=== PATIENT | female | born 1980 | race Caucasian/White ===

== ENCOUNTER 2021-03-23 11:04 | Emergency (ER) | payer BC, SELFPAY ==
[2021-03-23] VITALS (8 sets, daily range): BP systolic 97–110; BP diastolic 65–95; PULSE 74–93; RESP 16–18; TEMP 36.6–37.1; O2SAT 99–100
--- NOTE | ~2021-03-23 | CT_ITS ---
EXAMINATION: CT abdomen pelvis w con INDICATION: Mid abdominal pain, elevated liver function tests TECHNIQUE: Computed tomographic images of the abdomen and pelvis were obtained after the administrati on of 100 cc of Omnipaque 350 intravenous contrast. The dose-length product (DLP) was 187.84 mGy-cm. Automated exposure control and iterative reconstruction technique were employed. COMPARISON: None available FINDINGS: The lung bases are clear. The heart size is normal. There is mild intrahepatic biliary dila tation. There appears to be thickening and enlargement of the common bile duct. Cysts of the liver me asure up to 6 mm. The spleen, pancreas, and adrenal glands are normal. The gallbladder is decompresse d. The kidneys are unremarkable. There is no free intraperitoneal gas or evidence of bowel obstructio n. A moderate volume of colonic stool is present. IMPRESSION: 1. Possible thickening enlargement of the common bile duct with mild intrahepatic biliary dilatation. Recommend correlation for right upper quadrant tenderness and consider further evaluation by ultraso und and/or MRCP. Reviewed, dictated and finalized at location A. IMPRESSION: 1. Possible thickening enlargement of the common bile duct with mild intrahepat ic biliary dilatation. Recommend correlation for right upper quadrant tendernes s and consider further evaluation by ultrasound and/or MRCP.
--- NOTE | ~2021-03-23 | US_ITS ---
EXAMINATION: US right upper quadrant EXAM DATE: 03/23/2021 14:48 INDICATION: Nausea, elevated liver function tests. TECHNIQUE: Multiple grayscale and Doppler images of the abdomen right upper quadrant were obtained (b y a technologist who performed the scan) and subsequently reviewed. Correlation is made to CT earlier same day. FINDINGS: The pancreatic head and body are normal in appearance. The pancreatic tail is not visualized. The l iver has normal echogenicity and contour. There are no focal liver lesions identified. There is no evidence of intrahepatic biliary duct dilation. Portal venous flow was seen in the hepatopedal, nor mal direction and has normal Doppler waveform. No right-sided hydronephrosis. Common bile duct measures 3 mm, which is normal. The gallbladder wall is normal in thickness for cont racted state. No sonographic evidence of pericholecystic fluid. There is no cholelithiases. Technol ogist performing exam reports patient did not demonstrate sonographic Lawrence's sign. Please note mili t this sign is less reliable in patients who have received pain medication. IMPRESSION: Contracted, otherwise unremarkable gallbladder. Normal biliary duct size. Reviewed, dictated and finalized at location A.
[2021-03-23 12:13] LABS: Basophils Percent Auto 0.7 % (0.2-1.2); Eosinophils Absolute Auto 0.1 K/mm3 (0-0.3); Eosinophils Percent Auto 3.2 % (0-4.4); Hematocrit 39.9 % (37.0-47.0); Hemoglobin 12.8 g/dL (12.0-15.0); Immature Granulocyte Absolute 0.01 K/mm3 (0.00-0.031); Immature Granulocyte Percent A 0.2 % (0-0.5); Lymphocytes Absolute Auto 1.38 K/mm3 (0.9-3.2); Lymphocytes Percent Auto 31.3 % (18.3-44.2); Mean Corpuscular HGB Conc 32.1 g/dl (32-36); Mean Corpuscular Hemoglobin 31.1 pg (26-34); Mean Corpuscular Volume 96.8 fl (80-100); Mean Platelet Volume 9.9 fl (7.4-10.4); Monocytes Absolute Auto 0.5 K/mm3 (0.1-0.6); Monocytes Percent Auto 10.9 % (2.6-8.5); Neutrophils Absolute Auto 2.4 K/mm3 (1.3-6.7); Neutrophils Percent Auto 53.7 % (45.5-73.1); Platelet Count Result 239 k/mm3 (150-375); Red Blood Count 4.12 M/mm3 (4.2-5.4); Red Cell Distribution Width 13.6 % (11.5-14.5); White Blood Count 4.4 K/mm3 (4.5-10.0)
[2021-03-23 12:23] LABS: Alkaline Phosphatase 251 U/L (38-126); Anion Gap 6 mmol/L (8-16); Bilirubin,Total 1.3 mg/dL (0.2-1.3); Blood Urea Nitrogen 6 mg/dL (7-17); Calcium 9.2 mg/dL (8.4-10.2); Carbon Dioxide 28 mmol/L (22-30); Chloride 102 mmol/L (98-107); Estimated CRCL calculation 86 ml/min; Estimated Glomerular Filt Rate > 60; Glucose 140 mg/dL (65-105); Lipase 91 U/L (23-300); Potassium 3.9 mmol/L (3.4-5.0); Sodium 136 mmol/L (137-145)
[2021-03-23 12:33] LABS: Alanine Aminotransferase 1183 U/L (4-35); Aspartate Amino Transferase 1090 U/L (14-36)
--- NOTE | 2021-03-23 12:39 | ED.GENADULT ---
HPI - General Adult General Chief complaint: Abdominal Pain Stated complaint: Abd Pain Time Seen by Provider: 03/23/21 12:11 Source: patient Mode of arrival: ambulatory Limitations: no limitations History of Present Illness HPI narrative: Patient was seen in urgent care earlier today for abdominal pain that started midline from her umbilicus to her sternum and is now left-sided and periumbilical. The pain awakened her at 0400 She was sent in for possible appendicitis from urgent care. She tells me she does have a history of autoimmune hepatitis for which she has not received steroid treatment in many years. She has been well. She also has a history of transverse myelitis she has not seen neurology for many years as she has been well. She has had nausea for approximately 2 weeks, no vomiting. No fever, bowel or urinary symptoms. She has been able to eat her normal diet. Onset (ago): hour(s) Location: abdomen Radiation: abdomen and periumbilical Severity: moderate Quality: sharp Pain Consistency: constant Relieving factors: none Exacerbating factors: none Associated symptoms: nausea/vomiting (no vomiting) Treatments prior to arrival: none Related Data Allergies Allergy/AdvReac Type Severity Reaction Status Date / Time Sulfa (Sulfonamide Allergy Severe Anaphylactic Verified 03/23/21 14:47 Antibiotics) Shock egg Allergy Unknown Other Verified 03/23/21 12:32 acetaminophen AdvReac Mild Nausea and Verified 03/23/21 14:47 Vomiting azathioprine AdvReac Mild Nausea and Verified 03/23/21 14:47 Vomiting hydrocodone AdvReac Mild Nausea and Verified 03/23/21 14:47 Vomiting Review of Systems Review of Systems: All systems reviewed & are unremarkable except as noted in HPI and below [facility] Past Medical History Medical History Autoimmune hepatitis Social History Social History Smoking status: Never smoker Alcohol intake: never Substance use: never Gender identity (if verbalized by the patient): Female Exam Const: General: healthy appearing, no acute distress and alert Orientation/consciousness: patient oriented x3 HENMT: Head: normal to inspection Eyes: Conjunctivae: conjunctivae normal Pupils: Equal, round and reactive pupils present Resp: Effort & Inspection: normal respiratory effort Auscultation: clear to auscultation bilaterally Cardio: Rate: regular rate Rhythm: regular rhythm GI: Inspection: normal to inspection GI Palp: Yes Soft to palpation, Yes Tenderness to palpation present (GI) (periumbilical, radiating to left.) and Yes No hepatosplenomegaly present Percussion: Yes normal to percussion Auscultation: normal bowel sounds Rectal Exam: deferred : General: Yes no CVA tenderness Skin: General skin exam: normal color Neuro: General: patient oriented x3 and moves all extremities Extrem: General: normal to inspection Course Course Emergency Course: Reviewed the labs with the patient, specifically her concerning liver function test and her decreased white count. She was diagnosed with autoimmune hepatitis more than 5 years ago when L of her elevated liver enzymes were an incidental finding during evaluation for transverse myelitis. She saw a supervisor compounding and finishing was treated with steroids for 2 years. She has not seen him in approximately 5 years, nor has she need to see her neurologist for more than 5 years. She has been well. Call placed to here to determine if further work-up is needed here. Spoke with Dr. Bradley from . Reviewed all labs and imaging. He will be happy to see her next week for repeat labs and further treatment but feels this is related to her autoimmune hepatitis. Plan discussed with patient. Vital Signs Vital signs: Vital Signs Temperature 36.6 C 03/23/21 11:46 Pulse Rate 93 03/23/21 11:46 Respiratory Rate 16 03/23/21 11:46 Blood Pressu
[2021-03-23 12:41] LABS: Add Urine Microscopic? YES; Appearance Urine Cloudy (Clear); Bacteria Urine Trace /hpf; Bilirubin Urine Negative (Negative); Blood Urine Negative (Negative); Color Urine Yellow (Yellow); Glucose Urine UA Negative (Negative); Ketones Urine Negative (Negative); Leukocyte Esterase Ur Negative LEU/UL (Negative); Mucus Urine Rare /lpf; Nitrate Urine Negative (Negative); Protein Urine Negative (Negative); RBC Urine 0-2 /hpf (0-2); Specific Grav Ur 1.005 (1.001-1.035); Squamous Epithelial Cell Urine Moderate /hpf (Few); Urobilinogen Urine Negative mg/dL (<2.0); WBC Urine 0-3 /hpf
[2021-03-23] MEDS: SODIUM CHLORIDE 0.9% IV 1,000 ML 999 ML IV CONT (15:25)
== END 2021-03-23 17:15 | disposition home or self-care (01) ==
PROVIDERS: Emergency Medicine; Emergency Provider Emergency Medicine
DX: K75.4 Autoimmune hepatitis (principal); R11.0 Nausea
CPT/HCPCS: 36415; 74177; 76705; 80053; 81001; 81025; 83690; 85025; 96360; 96361; 99284; J7030; Q9967

== ENCOUNTER 2021-04-16 06:33 | Outpatient (CLI) | payer BC, SELFPAY ==
--- NOTE | ~2021-04-16 | MR_ITS ---
EXAMINATION: MR MRCP wo/w con/w 3D wo ind DATE: 04/16/2021 08:01 INDICATION: Autoimmune hepatitis TECHNIQUE: Magnetic resonance imaging (MRI) of the abdomen was performed without and with intravenous contrast. Sequences included coronal T2-weighted SS-FSE ARC, coronal T2-weighted FS SS-FSE, coronal T2-weighted 2D FS FIESTA, Water:Coronal LAVA-Flex, sagittal T2-weighted SS-FSE ARC, axial SSFSE ARC, axial 3D DualEcho, axial DWI B=600, axial T1-weighted LAVA, FAT:Coronal LAVA-Flex, and coronal in and opposed phase LAVA-Flex. Thick-slab T2-weighted FRFSE-XL images were obtained for magnetic resonance cholangiopancreatography (MRCP). Maximum intensity projection 3-D reconstructions of the volumetric data were created by the technologist. Postcontrast sequences included a time course of axial T1-weig hted LAVA, FAT:Coronal LAVA-Flex, coronal in and opposed phase LAVA-Flex, and Water:Coronal LAVA-Flex . COMPARISON: CT, 03/23/2021 CONTRAST: Multihance, 10 cc FINDINGS: ABDOMEN MRI: Cysts of the liver measure up to 7 mm. The liver is otherwise unremarkable. The spleen, pancreas, and adrenal glands are normal. The gallbladder is mildly contracted but otherwise unremarka ble. The kidneys are normal. There are no pathologically enlarged lymph nodes. No dilated loops of osbaldo wel are evident. No abnormal enhancement is present after contrast administration. ABDOMEN MRCP: There is no intrahepatic or extrahepatic biliary dilatation. The common bile duct is un remarkable. The previously described thickening and enhancement of the common bile duct are no longer evident. The pancreatic duct is normal in course and caliber. IMPRESSION: 1. Normal MRCP. Reviewed, dictated and finalized at location A. IMPRESSION: 1. Normal MRCP.
== END 2021-04-16 06:34 | disposition home or self-care (01) ==
LOC: ANHIMG 06:35
PROVIDERS: Visit Provider Nurse Practitioner Family
DX: K75.4 Autoimmune hepatitis (principal)
CPT/HCPCS: 74183; 76376; A9577

== ENCOUNTER → 2022-06-29 10:11 | Outpatient (CLI) | payer BC, SELFPAY ==
--- NOTE | ~2022-06-29 | MMUS_ITS ---
EXAMINATION: MM diagnostic kam BI w demetrice, US breast BI complete HISTORY: Palpable left breast abnormality. TECHNIQUE: Additional 3-D tomosynthesis images of the breasts were performed and synthetic 2-D images were generated. CAD analysis was submitted and interpreted. High resolution complete bilateral breas t ultrasound was performed. COMPARISON: No prior studies for comparison. BREAST PARENCHYMAL COMPOSITION: The breasts are extremely dense, which lowers the sensitivity of mamm ography FINDINGS: MAMMOGRAPHIC FINDINGS: There are no suspicious masses, calcifications or architectural distortion in either breast to sugges t malignancy. ULTRASOUND: Complete bilateral US of all 4 quadrants of the breasts and retroareolar region was reviewed. There a re multiple simple and complicated cysts bilaterally. There are no suspicious masses to suggest malig amrissa. In the area of palpable concern in the left breast there are 2 adjacent cysts corresponding to the area of palpable concern, largest measuring 6 mm. IMPRESSION: 1. No evidence for malignancy in either breast. Benign findings. 2. Routine yearly screening mammogram and regular clinical breast examination are recommended. BI-RADS Category 2: Benign finding(s). Reviewed, dictated and finalized at location A. IMPRESSION: 1. No evidence for malignancy in either breast. Benign findings. 2. Routine yearly screening mammogram and regular clinical breast examination a re recommended. BI-RADS Category 2: Benign finding(s).
== END ==
PROVIDERS: Visit Provider Nurse Practitioner
DX: R92.8 Other abnormal and inconclusive findings on diagnostic imaging of breast (principal)
CPT/HCPCS: 76641; 77062; 77066; G0279

== ENCOUNTER 2023-02-24 09:49 | Outpatient (RCR) | payer BC, SELFPAY ==
--- NOTE | ~2023-02-24 | US_ITS ---
EXAMINATION: US OB limited w BPP DATE: 02/24/2023 11:27 INDICATION: Decreased movement. Third trimester. TECHNIQUE: Real-time pelvic ultrasound was performed. COMPARISON: None. FINDINGS: There is a single living fetus in breech presentation. The placenta is posterior. heart rate i s 155 beats per minute (bpm). The amniotic fluid index is 13.7 cm, which is normal. Biophysical profile performed by the technologist: breathing (30 sec sustained breathing in 30 minutes): 2 out of 2 movement (3 gross body movements in 30 minutes): 2 out of 2 tone (one episode of qsuvldz-gjiuqpkba-gdumlse limb movement): 2 out of 2 Amniotic fluid pocket (2 cm): 2 out of 2 Total score: 8 out of 8 IMPRESSION: 1. Single living fetus in breech presentation. 2. Biophysical profile 8 out of 8. Reviewed, dictated and finalized at location A.
[2023-02-24 11:46] VITALS: BP 103/64; PULSE 81
== END 2023-05-25 23:59 | disposition home or self-care (01) ==
LOC: ANHOBOP 09:49
PROVIDERS: Visit Provider Obstetrics & Gynecology Gynecology
DX: O36.5930 Maternal care for other known or suspected poor fetal growth, third trimester, not applicable or unspecified (principal); Z3A.28 28 weeks gestation of pregnancy
CPT/HCPCS: 59025; 76815; 76819

== ENCOUNTER 2023-05-13 21:10 | Inpatient (IN) | payer BC, SELFPAY ==
[2023-05-13] VITALS (9 sets, daily range): BP systolic 114–133; BP diastolic 74–81; PULSE 61–89; BMI 22.4
--- NOTE | 2023-05-13 21:10 | LDADM ---
This patient, Merry Shore, was admitted to Labor/Delivery/Recovery 105 on 05/13/23 at 21:10. Plans for labor, pain management and were discussed with patient. Patient/family oriented to hospital policies and general routines including ID bracelet, bed and alarms, visiting hours, pain management, procedures, bathroom and other care routines, personal items, smoking policy, room service/diet and guest tray routines, security routines, and visiting hours. Patient/Family are encouraged to report perceived risks to care and to ask questions if they do not understand what they are told or what they should do. See OBIX for further documentation.
[2023-05-13 22:08] LABS: Basophils Percent Auto 0.2 % (0.2-1.2); Eosinophils Percent Auto 0.4 % (0-4.4); Hematocrit 33.7 % (37.0-47.0); Hemoglobin 11.6 g/dL (12.0-15.0); Immature Granulocyte Absolute 0.09 K/mm3 (0.00-0.031); Immature Granulocyte Percent A 0.9 % (0-0.5); Lymphocytes Absolute Auto 2.58 K/mm3 (0.9-3.2); Mean Corpuscular HGB Conc 34.4 g/dl (32-36); Mean Corpuscular Hemoglobin 33.6 pg (26-34); Mean Corpuscular Volume 97.7 fl (80-100); Mean Platelet Volume 11.5 fl (7.4-10.4); Monocytes Absolute Auto 0.7 K/mm3 (0.1-0.6); Monocytes Percent Auto 6.5 % (2.6-8.5); Neutrophils Absolute Auto 6.6 K/mm3 (1.3-6.7); Platelet Count Result 168 k/mm3 (150-375); Red Blood Count 3.45 M/mm3 (4.2-5.4); Red Cell Distribution Width 13.2 % (11.5-14.5); White Blood Count 9.9 K/mm3 (4.5-10.0)
[2023-05-13] MEDS: DINOPROSTONE 10 MG VAG INSERT VAGINAL (22:30)
[2023-05-14] VITALS (88 sets, daily range): BP systolic 103–149; BP diastolic 38–81; PULSE 51–212; TEMP 36.6–37.6; O2SAT 84–100
--- NOTE | 2023-05-14 08:36 | WPDOBADMIT ---
Obstetrics - Admit Note Admission Note: record reviewed. No pertinent additions to the history and/or any subsequent changes in the physical findings that are not consistent with the expected course of the were found. Additions to the history and/or subsequent changes in the physical findings follow. Here for MIL. Cervadil last pm. Ctx q 2-4 min. Cervix 1-2/50/-1 posterior. Cervadil removed. AROM with clear fluid. FHTs Cat I. Induction ongoing. Pitocin if needed in 1 hour.
[2023-05-14] MEDS: LACTATED RINGERS 1,000 ML 125 ML IV CONT ×2 (08:49→11:55)
[2023-05-14] MEDS: OXYTOCIN 30 UNITS/NS 500 ML 30 UNITS/500 ML BAG IV CONT (11:18)
[2023-05-14] MEDS: fentaNYL CITRATE INJ (*CRX) 100 MCG/2 ML VIAL 50 MCG IV PUSH (13:16)
[2023-05-14] MEDS: fentaNYL CITRATE INJ (*CRX) 100 MCG/2 ML VIAL IV PUSH (14:16)
[2023-05-14] MEDS: SODIUM CHLORIDE 0.9% IV 300 ML 600 ML I-UTERINE (14:36)
--- NOTE | 2023-05-14 15:33 | PM.OBPNLAB ---
Pain Control Date/time seen: 05/14/23 15:33 Pain control: narcotic analgesia Comments: Called by RN for persistent variable decelerations. Pitocin off. On my arrival, patient on right side. FHTs with good acels, good variability with variable decels. Pelvic Exam Dilation (cm): 5 (4-5 cm) Effacement (%): 90 station: 0 Amniotic membrane status: Leaking Contractions Monitor mode: Internal Contraction pattern: Regular Assessment and Plan Assessment: induction ongoing Plan: continuous present management
[2023-05-14] MEDS: PROCHLORPERAZINE EDISYLATE 10 MG/2 ML VIAL IM (15:42)
[2023-05-14] MEDS: MEPERIDINE HCL INJ (*CRX) 50 MG/ML AMPUL IM (15:43)
[2023-05-14] MEDS: MEPERIDINE HCL INJ (*CRX) 50 MG/ML AMPUL 100 MG IM (17:35)
--- NOTE | 2023-05-14 18:25 | PM.OBPNLAB ---
Pain Control Date/time seen: 05/14/23 18:25 Pain control: narcotic analgesia (demerol with compazine and second dose demerol given) Comments: Received 2nd dose demerol approx. 1 hour ago. Patient comfortably resting between contractions and appropriate breathing and groaning with contractions throughout discussion. Patient requesting to talk to me and requesting csection due to pain. Discussed with patient that pain is not an indication for csection. Patient and sig. other questions answered. Option of lidocaine patch and Nubain as next steps for pain control reviewed. Need to increase pitocin for adequate labor to progress discussed. Pelvic Exam Dilation (cm): 5 (4-5 cm) Effacement (%): 90 station: 0 Amniotic membrane status: Leaking Comments: per last exam by RN at 1715 Contractions Monitor mode: Internal Contraction pattern: Regular (q 5 min) Contraction intensity: Moderate Status Comments: variables with contractions. Good variability and accels. Slight decrease in baseline with narcotics. Assessment and Plan Assessment: induction ongoing Plan: continuous present management
[2023-05-14] MEDS: LIDOCAINE 5% PATCH 2 PATCH TRANSDERM (18:50)
[2023-05-14] MEDS: NALBUPHINE HCL INJ 10 MG/ML AMPUL IM (19:50)
[2023-05-14] MEDS: NALBUPHINE HCL INJ 10 MG/ML AMPUL IV PUSH (19:50)
[2023-05-14] MEDS: KETOROLAC 30 MG/ML VIAL (*BKC) (21:30)
[2023-05-14] MEDS: LIDOCAINE HCL 1% LOCAL INJ 20 ML VIAL (21:30)
--- NOTE | 2023-05-14 21:38 | PM.OBPRVD ---
OB - Delivery Note Procedure Delivery date: 05/14/23 Procedure: Induction method: AROM, Per Pitocin Protocol and Per Cervidil Protocol Delivery monitor: External FHT and Internal Uterine Route of delivery: Laceration Description: Perineal - 2nd Degree Delivery repair: vicryl (3-0) Specimen: No Quantitative Blood Loss (ml): 150 Anesthesia type: Local Disposition: Floor [place] Baby Date of : 05/14/23 Weeks of gestation at delivery: 39 gender: Female Weight (pounds): 6 Weight (ounces): 6 presentation: vertex position: Right Occiput Anterior Placenta delivery description: Spontaneous Cord Vessel Description: 3 Vessels score one minute: 8 score five minutes: 8
--- NOTE | 2023-05-14 21:40 | PM.OBDSVD ---
DS: Admitting Diagnosis Discharge Date 05/16/23 Admitting Diagnosis IUP 39 wks for DAVID DS: Discharge Diagnosis Discharge Diagnosis (1) (normal spontaneous vaginal delivery): Code(s): O80 - Encounter for full-term uncomplicated delivery Status: Acute OB - DS: Summary OB Procedures : Ultrasound OB Procedures Intrapartum: Spontaneous Vag Delivery OB Procedures: : None Peripartum Data Delivery Method: Natural Vaginal Laceration Description: Perineal - 2nd Degree complications: none Status at Discharge Functional status at discharge: independent ambulation Overall status at discharge: patient is progressing back to baseline Time Spent with Patient Time attestation: Total time spent providing and/or coordinating discharge services: DS: Data Data Completed and Pending Labs on day of discharge: Labs from last 24 hours 05/13/23 21:58 WBC 9.9 RBC 3.45 L Hgb 11.6 L Hct 33.7 L MCV 97.7 MCH 33.6 MCHC 34.4 RDW 13.2 Plt Count 168 MPV 11.5 H Immature Gran % (Auto) 0.9 H Neut % (Auto) 66.0 Lymph % (Auto) 26.0 [place] % (Auto) 6.5 Eos % (Auto) 0.4 Baso % (Auto) 0.2 Lymph # (Auto) 2.58 [place] # (Auto) 0.7 H Eos # (Auto) 0.0 Baso # (Auto) 0.0 Abs Immat Gran (auto) 0.09 H Absolute Neuts (auto) 6.6 Absolute Nucleated RBC 0.0 Nucleated RBC % 0.0 RPR Pending Blood Type O Positive Antibody Screen Negative Discharge Plan Discharge Attending physician on discharge: Leida Ridley Discharging Clinician: Leida Ridley Anticipated Discharge Date/Time: 05/16/23 21:41 Patient Disposition: Home, Self-Care Activity: may shower and pelvic rest Diet: regular Patient Instructions: Antibiotic Form Stand Alone Forms: General Discharge Information Follow-up/Referrals: Leida Ridley MD [Physician] - 6 Weeks Discharge Medications: Continued prenat.vits,stephane,jox-dtno-enytj Tablet 1 tablet PO DAILY Adult 50 Plus Probiotic 4 billion cell capsule 1 mmu cells PO DAILY budesonide 3 mg capsule,delayed,extend.release 9 mg PO DAILY Patient Comments: pt took own home medication. Rx Instructions: TAKE 3 CAPSULES BY MOUTH DAILY ferrous sulfate 325 mg (65 mg iron) Tablet 325 mg PO BID Discontinued aspirin [Aspirin Child] 81 mg Tablet,Chewable 81 mg PO HS Date of admission: 05/13/23 21:10 Primary Care Provider: PHYSICIAN NOT ON STAFF,NONSTAFF Admitting Provider: Leida Ridley Attending physician on admission: Leida Ridley Condition: Stable
[2023-05-14] MEDS: OXYTOCIN 30 UNITS/NS 500 ML 30 UNITS/500 ML BAG 125 UNITS IV CONT (22:30)
--- NOTE | 2023-05-14 23:55 | OBPPTRN ---
Patient transferred to post room #292 via w/c. Support person present. Oriented to unit, room, information board, rooming in, admission packet and security measures. Patient verbalizes understanding.
[2023-05-15 00:10] VITALS: BP 125/78; PULSE 66; RESP 18; TEMP 36.9; O2SAT 99
[2023-05-15 05:00] VITALS: BP 116/73; PULSE 62; RESP 16; TEMP 36.7; O2SAT 98
[2023-05-15 05:16] LABS: Hematocrit 29.7 % (37.0-47.0); Hemoglobin 10.4 g/dL (12.0-15.0)
--- NOTE | 2023-05-15 05:21 | PM.OBPNVD ---
OB - PN: Subj Subjective Date/time seen: 05/15/23 05:10 Interval history: PPD 1 from . Has ambulated to BR. Pain well controlled with PO medication. Denies passing any large clots. Patient comments: pain well controlled baby status: doing well [place] feeding status: breast and bottle feeding OB - PN: Obj Data Labs 05/13/23 21:58 OB - PN A/P Plan day: 1 Plan: routine care Time Spent With Patient Time: Total time spent is greater than 50% in coordination of care (as documented) at patient's floor/unit and/or counseling patient: Review of Systems Review of Systems: All systems reviewed & are unremarkable except as noted in HPI and below Constitutional: Constitutional: Reports no additional constitutional complaints Genitourinary: Comments: Urinating without difficulty. Exam Narrative: Alert and oriented. Mood is pleasant and cooperative. Urinating without difficulty. Denies passing any large clots. Perineum with minimal edema. Fundus firm and below umbilicus. Const: General: cooperative, healthy appearing, no acute distress and alert Orientation/consciousness: patient oriented x3 Limitations: no limitations Resp: Effort & Inspection: normal respiratory effort Auscultation: clear to auscultation bilaterally Cardio: Rate: regular rate GI: Inspection: normal to inspection Neuro: General: patient oriented x3 Extrem: General: normal to inspection Psych: Appearance: grossly normal Mental Status: mental status grossly normal Affect: normal affect Thought process: Normal thought process present
[2023-05-15] MEDS: IBUPROFEN 600 MG TABLET PO (09:34)
[2023-05-15] MEDS: MULTIVIT/MIN/PREN/FOL AC/IRON TABLET 1 TAB PO (09:34)
[2023-05-15 10:00] VITALS: BP 109/76; PULSE 96; RESP 16; TEMP 37.1; O2SAT 100
[2023-05-15 13:07] VITALS: BP 111/69; PULSE 79; RESP 16; TEMP 36.8; O2SAT 99
[2023-05-15 16:52] VITALS: BP 111/69; PULSE 68; RESP 16; TEMP 36.8; O2SAT 100
[2023-05-15 19:15] VITALS: BP 123/66; PULSE 76; RESP 16; TEMP 36.2; O2SAT 100
[2023-05-16] MEDS: IBUPROFEN 600 MG TABLET PO ×2 (00:48→07:42)
[2023-05-16 07:27] VITALS: BP 119/79; PULSE 68; RESP 16; TEMP 37.1; O2SAT 100
[2023-05-16] MEDS: WITCH HAZEL 40 PADS 1 PAD TOPICAL (07:41)
[2023-05-16] MEDS: BENZOCAINE 20% AER SPR (*SP) 56 GM CAN 1 SPRAY TOPICAL (07:41)
[2023-05-16] MEDS: LANOLIN (LANSINOH) 7.5 GM CREAM 1 APPLIC TOPICAL (07:43)
--- NOTE | 2023-05-16 09:31 | PM.OBPNVD ---
OB - PN: Subj Subjective Date/time seen: 05/16/23 09:31 Patient comments: no complaints and pain well controlled baby status: doing well OB - PN: Obj Data Labs 05/15/23 04:57 OB - PN A/P Plan day: 2 Plan: routine care, discharge home, follow up 6 weeks and other (unsure bc) Time Spent With Patient Time: Total time spent is greater than 50% in coordination of care (as documented) at patient's floor/unit and/or counseling patient: Exam : Bimanual exam- vagina & uterus: other (Uterus firm, nt @U)
[2023-05-16] MEDS: MULTIVIT/MIN/PREN/FOL AC/IRON TABLET 1 TAB PO (10:02)
[2023-05-16 10:56] LABS: Rapid Plasma Reagin Non-Reactive (NonReactive)
--- NOTE | 2023-05-16 12:03 | PC.NURSE ---
[id number] Introductions were made, then consulted with patient to assess needs related to . Mother led the conversation with her?plans to feed?her infant and the?experience so far. Mother works well with her with encouragement and education. Encouraged understanding of the benefits of skin to skin (demonstrating unwrapping and placing upright on her chest), stimulating with massage touch, changing positions to encourage wakefulness, how to watch for early feeding cues, responsive feeding, feeding on demand (aiming for 8-12 times in 24 hours, about every 2-3 hours), milk production, building/maintaining a milk supply, duration of feeding, signs of adequate intake/output and how to record on the feeding sheet. Reviewed positioning and ear, shoulder, hip alignment, supporting the breast to facilitate a deep latch, asymmetrical latch (off-center), leading with the chin with a big, open, wide gape and body close to mother. Infant latched optimally to the left breast in cross cradle position. Education given to mother of how to visualize suck/swallow ratios and listen for drinking at the breast. Infant was able to maintain latch without discomfort to mother. Nipple care reviewed with optimal latch and good positioning. Mother is a bit uncomfortable with the cross cradle positioning. Infant was detached and placed upright [id number]. Once feeding cues were visualized was brought to the right breast using the football positioning. Parents were educated with infant demonstrating a deep latch, with no pain to mother after about 1-2 minutes, with swallowing both heard and visualized. Mother was reminded of comfort measures of healing with a warm and wet washcloth to rinse breast, then leave open to air-dry as needed. Reviewed good handwashing when or touching the breast/nipples to prevent infection. Mother is feeding appropriately for growth of infant and understands stimulating infant to eat if needed. Parents have mostly bottle fed the first 24 hours with only attempts to breastfeed. Infant has had appropriate feedings in the last 24 hours meets the outcomes for weight, output and jaundice at this time. Mother states she is more confident to continue effectively her infant at home, when to call for assistance and denies any additional assistance or bottle feed if she chooses. Mother has been previously been initiated and educated with pumping per Primary RN. Instructions given on cleaning, care, usage, that there should be no pain, pumping schedule for milk production, collection, and storage of human milk. Patient was encouraged to pump for comfort and nipple stretching/stimulation for adequate milk production every 3 hours (8 times in 24 hours) 1-2 times at night if infant is not effectively . Reinforced understanding of milk production, transition of milk, signs of adequate intake, transition of stool, prevention/relief of engorgement, plugged ducts, mastitis, responsive watching for feeding cues, the different methods of stimulating to breastfeed on demand or 2-3 hours after the start of the last feeding, community resources, and when to call a provider using the resource of the mom and baby guide. Parents voiced understanding of the education shared. Reported to the primary RN.
--- NOTE | 2023-05-16 13:21 | PC.NURSE ---
1302 - Primary RN requested LC assessment of latch. RN arrived into the room and visualized mother cradle holding her sleeping infant wrapped in a soft, fuzzy blanket. RN offered assistance. Father of baby encouraged mother to receive assistance. Mother confidently states she had latched with a big, wide open mouth, observed swallowing, heard swallowing, had no pain with the latch for 10 minutes and declined further assistance. Reinforced understanding of milk production, transition of milk, signs of adequate intake, transition of stool, prevention/relief of engorgement, plugged ducts, mastitis, responsive watching for feeding cues, protecting the milk supply and nipples with good positioning with deep effective 8-12 times in a 24 hour period. Mother voiced understanding of the education shared. Reported to the primary RN.
[2023-05-17 11:43] VITALS: BP 124/65; PULSE 82; RESP 18; TEMP 37.3; O2SAT 100
== END 2023-05-16 14:40 | disposition home or self-care (01) | DRG 807 ==
LOC: ANHLDR 05-14 21:41 → ANHOB2 05-14 23:57
PROVIDERS: Admitting Provider Obstetrics & Gynecology Gynecology; Visit Provider Obstetrics & Gynecology Gynecology
DX: O70.1 Second degree perineal laceration during delivery (principal); Z37.0 Single live birth; Z3A.39 39 weeks gestation of pregnancy
CPT/HCPCS: 36415; 85014; 85018; 85025; 86592; 86850; 86900; 86901; A9270; J0780; J1885; J2175; J2300; J2590; J3010; J7030; J7120

== ENCOUNTER 2023-06-15 10:40 | Outpatient (RCR) | payer BC, SELFPAY | END 2023-09-07 23:59 | disposition home or self-care (01) | LOC: ANHOBOP 10:40 | PROVIDERS: Visit Provider Pediatrics Adolescent Medicine | DX: Z39.1 Encounter for care and examination of lactating mother (principal) | CPT/HCPCS: 99212; G0463 ==

== ENCOUNTER → 2023-10-20 09:35 | Outpatient (CLI) | payer BC, SELFPAY ==
--- NOTE | ~2023-10-20 | MMUS_ITS ---
EXAMINATION: MM diagnostic kam BI w demetrice, US breast BI complete HISTORY: Nipple discharge. Breast pain. TECHNIQUE: Additional 3-D tomosynthesis images of the breasts were performed and synthetic 2-D images were generated. CAD analysis was submitted and interpreted. High resolution complete bilateral breas t ultrasound was performed. COMPARISON: 06/29/2022 BREAST PARENCHYMAL COMPOSITION: Dense: The breasts are extremely dense, which lowers the sensitivity of mammography. FINDINGS: MAMMOGRAPHIC FINDINGS: There are no suspicious masses, calcifications or architectural distortion in either breast to sugges t malignancy. ULTRASOUND: Complete bilateral US of all 4 quadrants of the breasts and retroareolar region was reviewed. Right breast: At 1:00 near the areola there is a 4 mm simple cyst. At 8:00, 1 cm from the nipple ther e is an oval hypoechoic 5 mm mass with posterior acoustic enhancement and no internal vascularity, li braden benign. At 9:00, 3 cm from the nipple there is a 3 mm cyst. At 10:00, 4 cm from the nipple, ther e is a 1 cm cyst. At 10:00, 5 cm from the nipple there is an oval parallel oriented hypoechoic 3 mm m ass with low level internal echoes, likely benign. No internal vascularity. Left breast: At 1:00, 2 cm from the nipple, there is a 6 mm cyst. At 2:00, 1 cm from the nipple, ther e is a 2 mm cyst. At 4:00 near the areola there is an oval hypoechoic mass with parallel orientation, no significant posterior features and no internal vascularity measuring 7 mm, likely benign. At 8:00 , 1 cm from the nipple there is a 2 mm cyst. IMPRESSION: 1. Probable benign bilateral sonographic masses. 2. Recommend 6 month follow-up limited bilateral breast ultrasound BI-RADS category 3, probably benign findings. Reviewed, dictated and finalized at location A. ET [employer]ACH[employer]PER[employer] HELPER IMPRESSION: 1. Probable benign bilateral sonographic masses. 2. Recommend 6 month follow-up limited bilateral breast ultrasound BI-RADS category 3, probably benign findings.
== END ==
PROVIDERS: PCP Nurse Practitioner; Visit Provider Nurse Practitioner
DX: N63.10 Unspecified lump in the right breast, unspecified quadrant (principal); N61.0 Mastitis without abscess; R92.8 Other abnormal and inconclusive findings on diagnostic imaging of breast
CPT/HCPCS: 76641; 77062; 77066; G0279